=== PATIENT | male | born 1975 ===

== ENCOUNTER 2023-12-31 20:22 | Emergency (ER) | payer OTHER ==
[~2023-12-31] VITALS: Ht 185.4 cm; Wt 100.0 kg
[2023-12-31 22:30] VITALS: BP 127/75; PULSE 78; RESP 19; TEMP 98.3
[2023-12-31] MEDS: BACITRACIN 0.9 GM PACKET OINTMENT TP ONE (22:36)
[2023-12-31] MEDS: LIDOCAINE 1% 10 ML VIAL SQ ONE (22:36)
[2023-12-31] MEDS: IBUPROFEN 600 MG TABLET PO ONE (23:30)
[2023-12-31] MEDS: ACETAMINOPHEN 500 MG TABLET PO ONE (23:31)
== END 2023-12-31 22:30 | disposition home or self-care (01) ==
LOC: EMS 20:22
DX: S01.111A Laceration without foreign body of right eyelid and periocular area, initial encounter (principal); S06.0X0A Concussion without loss of consciousness, initial encounter; Y04.8XXA Assault by other bodily force, initial encounter; Y93.89 Activity, other specified; Y92.89 Other specified places as the place of occurrence of the external cause; Y99.8 Other external cause status
CPT/HCPCS: 99284; 70450; 70486; 12013; J3490